=== PATIENT | female | born 1980 | race Caucasian/White ===

== ENCOUNTER 2017-10-12 15:47 | Emergency (ER) | payer SELFPAY ==
[2017-10-12] MEDS ORDERED: KETOROLAC TROMETHAMINE 60 MG/2 ML VIAL IM ONE ×2 (17:05→17:18)
[2017-10-12] MEDS ORDERED: diphenhydrAMINE HCL 50 MG/ML VIAL IM ONE (17:05)
[2017-10-12] MEDS ORDERED: METOCLOPRAMIDE HCL 5 MG/ML VIAL IM ONE (17:05)
--- NOTE | 2017-10-12 17:08 | ERNOTE ---
Head Injury HPI - Narrative Date of Service: 10/12/17 - General Injury to: head Time Seen by Provider: 10/12/17 16:45 Source: patient Exam Limitations: no limitations - Immun/Allergies/Home Medications Immunization: IMMUNIZATION HX Immunizations Up to Date Yes History of Influenza Vaccine Yes Hx Pneumococcal Vaccination No Allergies/Adverse Reactions: Allergies Allergy/AdvReac Type Severity Reaction Status Date / Time cephalexin Allergy Severe Anaphylaxis Verified 10/12/17 16:01 morphine Allergy Severe Anaphylaxis Verified 10/12/17 16:01 Penicillins Allergy Severe Anaphylaxis Verified 10/12/17 16:01 Home Medications: HOME MEDICATIONS Propranolol HCl 60 mg PO DAILY 10/12/17 [Last Taken Unknown] SUMAtriptan SUCCINATE [Sumavel Dosepro] 6 mg SQ PRN PRN 10/12/17 [Last Taken Unknown] - History of Present Illness Narrative: Pt. comes in with c/o nausea and blurred vision after hitting her post occiput today after she fell backward after she slipped on the ice. Pt. states that she has had a migraine since yesterday and she has a hx of migraines but is unsure of if this is causing the nausea and vision changes or if it is the head injury. Pt. denies any alleviating factors despite taking imitrex for the pain. Occurred: this morning Location Occurred: home Severity: mild Head Injury Location: occipital Method of Injury: Reports: fell Reason for Fall: Reports: slipped Loss of Consciousness: Reports: no loss of consciousness Associated Symptoms: Reports: nausea, other injuries - vision changes Review of Systems - Review of Systems Constitutional: Present: no symptoms reported. Absent: fever, chills, weakness , fatigue, malaise EYE: Present: vision changes. Absent: eye pain, eye discharge, double vision ENT: Present: no symptoms reported. Absent: nose pain, nose congestion, nasal drainage, sore throat, throat swelling Respiratory: Present: no symptoms reported. Absent: shortness of breath, cough , wheezing Cardiology: Present: no symptoms reported. Absent: chest pain, palpitations, edema Gastrointestinal/Abdominal: Present: nausea, vomiting. Absent: diarrhea, abdominal pain Genitourinary: Present: no symptoms reported. Absent: frequency, decreased urinary output Musculoskeletal: Present: no symptoms reported. Absent: back pain, joint pain Skin: Present: no symptoms reported. Absent: rash, change in hair/nails Neurological: Present: headache, dizziness/light-headedness. Absent: numbness, tingling All Other Systems: All systems neg except as marked - Patient's Past Medical History Patient History - Medical: Headache Patient History - Cardiac/Respiratory: No pertinent hx Patient History - Cancer: Breast, Cervical, Chemotherapy history, Radiation Therapy, Skin Patient History - Surgical Procedures: Other Patient History - Other: None - Social History Living Situations: home Abuse History: No History of abuse Psych History: No pertinent hx Smoking Status: Never smoker Have you smoked in the past 12 months: No Do you dip or chew tobacco: No Alcohol Use: none Drug Use: none - Immunizations Immunizations Up to Date: Yes Hx Pneumococcal Vaccination: No History of Influenza Vaccine: Yes Physical Exam - Physical Exam General Appearance: Present: wd/wn, alert, no apparent distress Head Exam: Present: normal inspection, no evidence of injury Eye Exam: Normal inspection: bilateral Ears, Nose, Throat: Present: normal ENT inspection, normal pharynx Neck: Present: normal inspection, nontender, supple, full range of motion. 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 Absent: pallor, skin rash ED Progress - Vital Signs Patient's Vital Signs:: I have reviewed the patient's vital signs. Vital Signs: Vital Signs 10/12/17 10/12/17 15:57 16:57 Temperature 37.0 C Pulse Rate 82 74 Respiratory 16 Rate Blood Pressure 127/80 108/71 O2 Sat by Pulse 100 99 Oximetry - CT/Ultrasound CT/Ultrasound Narrative: head CT negat - Progress/Reassessment Chief Complaint: Head Injury Progress:: Improved Departure Clinical Impression: Migraine Qualifiers: Migraine type: without aura Status migrainosus presence: without status migrainosus Intractability: not intractable Qualified Code(s): G43.009 - Migraine without aura, not intractable, without status migrainosus Head injury Qualifiers: Encounter type: initial encounter Qualified Code(s): S09.90XA - Unspecified injury of head, initial encounter - Departure Disposition: Home self-care Condition: Good Instructions: Migraine Headache, [id number], Head Injury, Adult, [id number] Additional Instructions: Please follow up with neurologist as needed. Referrals: Alethea Irwin MD [Staff Physician] -
[2017-10-12] MEDS ORDERED: diphenhydrAMINE HCL 50 MG/ML VIAL ONE (17:18)
[2017-10-12] MEDS ORDERED: METOCLOPRAMIDE HCL 5 MG/ML VIAL ONE (17:18)
[2017-10-12 19:24] VITALS: BP 106/71
== END 2017-10-12 19:13 | disposition home or self-care (01) ==
LOC: ER 15:47

== ENCOUNTER 2017-11-27 12:29 | Emergency (ER) | payer MEDICAID ==
[2017-11-27] MEDS ORDERED: KETOROLAC TROMETHAMINE 30 MG/ML VIAL ONE (12:49)
[2017-11-27] MEDS ORDERED: ORPHENADRINE CITRATE 30 MG/ML VIAL ONE (12:50)
[2017-11-27] MEDS: ORPHENADRINE CITRATE 30 MG/ML VIAL IM ONE (12:51)
[2017-11-27] MEDS: KETOROLAC TROMETHAMINE 30 MG/ML VIAL IM ONE (12:51)
--- NOTE | 2017-11-27 12:57 | ERNOTE ---
Back Pain ER HPI Date of Service: 11/27/17 Presenting Symptoms: other - sudden back pain Time Seen by Provider: 11/27/17 12:37 Source: patient Exam Limitations: no limitations Immunizations: IMMUNIZATION HX Immunizations Up to Date Yes History of Influenza Vaccine Yes Hx Pneumococcal Vaccination No Allergies/Adverse Reactions: Allergies cephalexin Allergy (Severe, Verified 10/12/17 16:01) Anaphylaxis morphine Allergy (Severe, Verified 10/12/17 16:01) Anaphylaxis Penicillins Allergy (Severe, Verified 10/12/17 16:01) Anaphylaxis Home Medications: HOME MEDICATIONS Cyclobenzaprine HCl [Flexeril] 10 mg PO TID PRN #30 tab 11/27/17 [Last Taken Unknown] Naproxen [Naprosyn] 500 mg PO BID PRN #60 tab 11/27/17 [Last Taken Unknown] Narrative: Pt. presents with 2 day hx of mid spine back pain. Pt. denies any injury, weakness, fatigue, numbness, tingling, or incontinence. Pt. denies any SOB, CP , NVD, or alleviating factors but states that standing, sitting for long periods of time, movment, and lying with her legs straight worsens the pain. Timing: Reports: resolved prior to arrival Quality/Severity: Reports: severe, cramping, stabbing, throbbing Location of pain: Reports: mid back, no radiation. Denies: radiating to rt thigh/leg, radiating to lf thigh/leg Activities at Onset: Reports: sleep Recent Injury?: Reports: no Possible Precipitating Factor: Reports: none. Denies: lifting, turning/bending , fall/near fall, trauma, other Modifying Factors - (Improves): Reports: nothing Modifying Factors - (Worsens): Reports: upright position, movement to right, movement to left, movement flexion. Denies: supine position, cough/deep breaths Associated Symptoms: Denies: fever/chills, constipation/incontinence, nausea/ vomiting, problems urinating, difficulty walking, lightheadedness, numbess/ weakness in legs Prior Treament: Reports: similar symptoms before - as a adolescent. Denies: recently seen, treated by physician, recently hospitalized, currently on antibiotics Review of Systems - Review of Systems Constitutional: Present: no symptoms reported. Absent: fever, chills, weakness , fatigue, malaise EYE: Present: no symptoms reported. Absent: eye pain, double vision ENT: Present: no symptoms reported. Absent: nose pain, nose congestion, nasal drainage, sore throat, throat swelling Respiratory: Present: no symptoms reported. Absent: shortness of breath, cough , wheezing Cardiology: Present: no symptoms reported. Absent: chest pain, palpitations, edema Gastrointestinal/Abdominal: Present: no symptoms reported. Absent: nausea, vomiting, diarrhea, abdominal pain Genitourinary: Present: no symptoms reported. Absent: frequency, pain, dysuria , hematuria, decreased urinary output, discharge Musculoskeletal: Present: back pain. Absent: muscle pain, neck pain, joint pain Skin: Present: no symptoms reported. Absent: rash, change in hair/nails Neurological: Present: no symptoms reported. Absent: headache, dizziness/light- headedness, tingling All Other Systems: All systems neg except as marked - Patient's Past Medical History Patient History - Medical: Headache Patient History - Cardiac/Respiratory: No pertinent hx Patient History - Cancer: Breast, Cervical, Chemotherapy history, Radiation Therapy, Skin Patient History - Surgical Procedures: Cancer Surgery, Hysterectomy, Other Patient History - Other: None LMP (females 10-50): Menopausal - Social History Living Situations: home Abuse History: No History of abuse Psych History: No pertinent hx Smoking Status: Never smoker Alcohol Use: rarely Drug Use: none - Immunizations Immunizations Up to Date: Yes Hx Pneumococcal Vaccination: No History of Influenza Vaccine: Yes Physical Exam - Physical Exam General Appearance: Present: wd/wn, alert, no apparent distress Head Exam: Present: normal inspection, no evidence of injury, no tenderness w palpation Eye Exam: Normal inspection: bilateral Neck: Present: normal inspection, nontender, supple, full range of motion. Absent: lymphadenopathy (R), lymphadenopathy (L), tender lateral, tender posterior midline Respiratory: Present: no respiratory distress, normal breath sounds, no accessory muscle use, chest nontender, lungs clear Cardiovascular/Chest: Present: regular rate, rhythm, no murmur, normal peripheral pulses Gastrointestinal/Abdominal: Present: normal bowel sounds, nontender, nondistended, soft, no organomegaly Back Exam: Present: no CVA tenderness, vertebral tenderness - T8-10, decreased range of motion - flexion or rotation, muscle spasm - B paraspinous, other - B strsight leg raise positive for pain reproduction Extremity Exam: Present: normal inspection, non-tender, normal range of motion, no edema Neurological Exam: Present: alert, oriented, normal mood/affect, no motor/ sensory deficits, 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 Absent: motor weakness Skin Exam: Present: normal color, warm/dry. Absent: pallor, skin rash ED Progress - Vital Signs Patient's Vital Signs:: I have reviewed the patient's vital signs. Vital Signs: Vital Signs 11/27/17 12:38 Temperature 37.3 C Pulse Rate 103 H Respiratory 18 Rate Blood Pressure 135/62 O2 Sat by Pulse 97 Oximetry - X-Ray X-Ray #1 X-Ray: thoracic Interpretation: Reviewed by me X-ray Comments: No obvious abnormality of the thoracic spine - Progress/Reassessment Chief Complaint: Back Pain Departure Clinical Impression: Strain of thoracic region Qualifiers: Encounter type: initial encounter Qualified Code(s): S29.019A - Strain of muscle and tendon of unspecified wall of thorax, initial encounter - Departure Disposition: Home self-care Condition: Good Instructions: Thoracic Strain, [id number] Additional Instructions: Please follow up with chiropractor for pain relief. Referrals: Magdalena Garcia ARNP [Primary Care Provider] - Prescriptions: Cyclobenzaprine HCl [Flexeril] 10 mg PO TID PRN #30 tab PRN Reason: MUSCLE SPASMS Naproxen [Naprosyn] 500 mg PO BID PRN #60 tab PRN Reason: Pain
[2017-11-27] MEDS ORDERED: NALBUPHINE HCL 20 MG/ML AMPUL ONE (13:28)
[2017-11-27] MEDS: NALBUPHINE HCL 20 MG/ML AMPUL IM ONE (13:32)
[2017-11-27 16:03] VITALS: BP 110/64
== END 2017-11-27 13:50 | disposition home or self-care (01) ==
LOC: ER 12:29
DX: S29.019A Strain of muscle and tendon of unspecified wall of thorax, initial encounter (principal); Z85.3 Personal history of malignant neoplasm of breast; Z85.41 Personal history of malignant neoplasm of cervix uteri; Z92.21 Personal history of antineoplastic chemotherapy; Z85.828 Personal history of other malignant neoplasm of skin; Z92.3 Personal history of irradiation